=== PATIENT | female | born 1985 | race Caucasian/White ===

== ENCOUNTER → 2016-12-10 | Outpatient (CLI) | payer BC ==
[2016-12-10 16:40] LABS: BUN/CREATININE RATIO 12 (0-10)
== END ==
LOC: LAB 15:47
PROVIDERS: Nurse Practitioner Family
DX: M10.9 Gout, unspecified (principal)
CPT/HCPCS: 36415; 80048; 84550

== ENCOUNTER → 2017-02-25 | Outpatient (CLI) | payer BC | LOC: LAB 09:32 | DX: N82.3 Fistula of vagina to large intestine (principal) | CPT/HCPCS: 36415; 81479; 83520; 86140; 88346 ==

== ENCOUNTER → 2017-06-14 | Outpatient (CLI) | payer BC ==
[2017-06-14 11:18] LABS: HEMOGLOBIN 14.5 gm/dl (12.3-15.3); RED BLOOD COUNT 4.68 M/UL (4.00-5.10); WHITE BLOOD COUNT 9.9 K/UL (4.5-11.0)
[2017-06-14 11:34] LABS: BUN/CREATININE RATIO 17 (0-10)
== END ==
LOC: LAB 10:43
PROVIDERS: Nurse Practitioner Family
DX: Z00.00 Encounter for general adult medical examination without abnormal findings (principal); K58.9 Irritable bowel syndrome, unspecified; M10.9 Gout, unspecified; M54.9 Dorsalgia, unspecified; E78.5 Hyperlipidemia, unspecified; R13.10 Dysphagia, unspecified; R06.00 Dyspnea, unspecified; N82.4 Other female intestinal-genital tract fistulae; R53.83 Other fatigue
CPT/HCPCS: 80053; 80061; 82607; 84439; 84443; 84550; 85025